=== PATIENT | female | born 1945 | race Caucasian/White ===

== ENCOUNTER 2018-07-27 20:00 | Observation (INO) ==
[2018-07-27] MEDS ORDERED: ASPIRIN 325 MG TABLET PO STA (20:15)
[2018-07-27] MEDS ORDERED: ENOXAPARIN 80 MG/0.8 ML SYRINGE SUBCUT STA (20:26)
[2018-07-27 20:35] LABS: Basophils % 0.2 % (0.0-0.8); Eosinophils # 0.1 10*3/uL (0.0-0.87); Eosinophils % 0.3 % (0.00-10.9); Hematocrit 42.8 VOL% (35.7-47.0); Hemoglobin 14.1 GM/DL (12.0-16.0); Immature Granulocytes % 0.3 %; Immature Granulocytes Absolute 0.05 #; Lymphocytes # 2.8 10*3/uL (1.4-4.0); Lymphocytes % 18.5 % (21.3-54.2); Mean Corpuscular HGB Conc 32.9 GM/DL (32-36); Mean Corpuscular Hemoglobin 27 PG (27-34); Mean Corpuscular Volume 81.1 FL (87-102); Mean Platelet Volume 10.8 FL (9.6-12.0); Monocytes # 1.4 10*3/uL (0.11-0.8); Monocytes % 8.9 % (1.7-12.7); Neutrophils # 10.9 10*3/uL (1.4-7.4); Neutrophils % 71.8 % (38.7-73.9); Platelet Count 317 T/CUMM (130-400); Red Blood Count 5.28 MC/CUMM (3.8-5.5); Red Cell Distribution Width 13.5 % (9.3-17.3); White Blood Count 15.2 T/CUMM (4-12)
[2018-07-27] MEDS ORDERED: PANTOPRAZOLE 40 MG VIAL IV STA (20:44)
[2018-07-27 20:50] LABS: INR 1.1; PT Patient Result 11.4 SECS; Partial Thromboplastin Time 24.1 SECS (0-40)
[2018-07-27 20:52] LABS: Albumin 4.5 G/DL (3.4-5.0); Bilirubin,Total 0.7 MG/DL (0.2-1.0); Calcium 9.6 MG/DL (8.5-10.1); Osmolality,Calculated 278.1 MOS/KG (273-304); Potassium 3.5 MMOL/L (3.5-5.1); Total Protein 7.4 G/DL (6.4-8.3)
[2018-07-27] MEDS ORDERED: METOPROLOL TARTRATE 5 MG/5 ML VIAL IV STA (21:00)
[2018-07-27] MEDS ORDERED: METOPROLOL TARTRATE 5 MG/5 ML VIAL IV ONE (21:00)
[2018-07-27] MEDS ORDERED: MAGNESIUM SULF RIDER 4 GM in PREMIX 1 EACH IV PRN (23:01)
[2018-07-27] MEDS ORDERED: MAGNESIUM SULF RIDER 2 GM in PREMIX 1 EACH IV PRN (23:01)
[2018-07-27] MEDS ORDERED: ONDANSETRON 4 MG/2 ML VIAL IV PRN (23:25)
[2018-07-27] MEDS ORDERED: PROMETHAZINE 25 MG/1 ML VIAL IM PRN (23:25)
[2018-07-27] MEDS ORDERED: guaiFENesin/DM ER 600-30 MG TABLET PO PRN (23:35)
[2018-07-27] MEDS ORDERED: ACETAMINOPHEN 325 MG TABLET PO PRN (23:35)
[2018-07-27] MEDS ORDERED: BISACODYL 5 MG TABLET PO PRN (23:35)
[2018-07-27] MEDS ORDERED: MORPHINE 4 MG/1 ML VIAL IV PRN (23:35)
[2018-07-27] MEDS ORDERED: DOCUSATE SODIUM 100 MG CAPSULE PO PRN (23:35)
[2018-07-27] MEDS ORDERED: diphenhydrAMINE CAP 25 MG CAPSULE PO PRN (23:35)
[2018-07-27] MEDS ORDERED: ZALEPLON 5 MG CAPSULE PO PRN (23:35)
[2018-07-28] MEDS: LACTULOSE 20 GM/30 ML UDCUP PO PRN ×2 (01:40→18:32)
[2018-07-28] MEDS: SODIUM CHLORIDE 0.9% 1,000 ML IV SCH ×3 (01:40→16:34)
[2018-07-28] MEDS: POTASSIUM CHLORIDE RIDER 10 MEQ in PREMIX 1 EACH IV PRN ×7 (01:40→15:20)
[2018-07-28 04:08] LABS: Basophils % 0.2 % (0.0-0.8); Eosinophils # 0.1 10*3/uL (0.0-0.87); Eosinophils % 0.5 % (0.00-10.9); Hematocrit 40.2 VOL% (35.7-47.0); Immature Granulocytes % 0.4 %; Immature Granulocytes Absolute 0.04 #; Lymphocytes # 1.7 10*3/uL (1.4-4.0); Mean Corpuscular HGB Conc 32.3 GM/DL (32-36); Mean Corpuscular Hemoglobin 26 PG (27-34); Mean Corpuscular Volume 80.4 FL (87-102); Monocytes # 0.7 10*3/uL (0.11-0.8); Neutrophils # 8.6 10*3/uL (1.4-7.4); Neutrophils % 77.9 % (38.7-73.9); Platelet Count 279 T/CUMM (130-400); Red Cell Distribution Width 13.5 % (9.3-17.3)
[2018-07-28 04:38] LABS: Calcium 9.5 MG/DL (8.5-10.1); Osmolality,Calculated 283.8 MOS/KG (273-304); Potassium 3.1 MMOL/L (3.5-5.1)
[2018-07-28] MEDS ORDERED: ASPIRIN EC 81 MG TABLET PO SCH (09:00)
[2018-07-28] MEDS ORDERED: PANTOPRAZOLE 40 MG VIAL IV SCH (09:00)
[2018-07-28] MEDS ORDERED: cloNIDine 0.1 MG TABLET PO SCH (09:00)
[2018-07-28] MEDS ORDERED: POLYETHYLENE GLYCOL POWDER 17 GM PACK PO SCH (09:00)
[2018-07-28] MEDS ORDERED: MAGNESIUM CITRATE 300 ML BOTTLE PO PRN (09:04)
[2018-07-28] MEDS ORDERED: GLUCAGON 1 MG VIAL IM PRN (09:06)
[2018-07-28] MEDS ORDERED: DEXTROSE 50% 25 GM/50 ML VIAL IV PRN (09:06)
[2018-07-28] MEDS ORDERED: DIAZEPAM 5 MG TABLET PO ONE (09:20)
[2018-07-28 09:35] LABS: Free T4 (Free Thyroxine) 1.3 NG/DL (0.76-1.46); Risk Ratio 1.82; Thyroid Stimulating Hormone 1.68 uIU/ml (0.358-3.74); VLDL CHOLESTEROL 15.2 MG/DL
[2018-07-28] MEDS ORDERED: diphenhydrAMINE 50 MG/1 ML VIAL IV ONE (10:30)
[2018-07-28] MEDS ORDERED: methylPREDNISolone SOD SUC 40 MG/1 ML VIAL IV ONE (10:30)
[2018-07-28] MEDS ORDERED: FAMOTIDINE 20 MG/2 ML VIAL IV ONE (10:30)
[2018-07-28] MEDS ORDERED: methylPREDNISolone SOD SUC 125 MG/2 ML VIAL IV ONE (11:00)
[2018-07-28] MEDS ORDERED: HEPARIN/NACL 0.9% 2 UNITS/ML 1,000 ML IV ONE (11:42)
[2018-07-28] MEDS ORDERED: LIDOCAINE 1% 20 ML VIAL ONE (11:42)
[2018-07-28] MEDS ORDERED: NITROGLYCERIN DRIP 50 MG/250 ML BOTTLE IV ONE (12:06)
[2018-07-28] MEDS ORDERED: VERAPAMIL 5 MG/2 ML VIAL ONE (12:06)
[2018-07-28] MEDS: INSULIN REGULAR 100 UNIT/ML SUBCUT SCH ×2 (12:09→15:38)
[2018-07-28] MEDS ORDERED: MIDAZOLAM 2 MG/2 ML VIAL ONE (12:12)
[2018-07-28] MEDS ORDERED: HYDROmorphone 2 MG/1 ML VIAL ONE (12:12)
[2018-07-28] MEDS ORDERED: ENOXAPARIN 30 MG/0.3 ML SYRINGE ONE (12:17)
[2018-07-28] MEDS ORDERED: SODIUM CHLORIDE 0.9% 1,000 ML IV SCH (12:30)
[2018-07-28] MEDS ORDERED: MAGNESIUM CITRATE 300 ML BOTTLE PO ONE (14:26)
[2018-07-28] MEDS ORDERED: SODIUM PHOSPHATE ENEMA 133 ML BOTTLE RECTAL ONE ×2 (17:10→17:41)
[2018-07-28 18:34] VITALS: BP 122/62
[2018-07-28] MEDS ORDERED: METOPROLOL SUCCINATE XL 100 MG TABLET PO SCH (19:00)
== END 2018-07-28 18:41 | disposition home or self-care (01) ==
LOC: N.EDINP 20:00 → N.ED 20:00 → N.TELEN 22:29
PROVIDERS: ADMIT Internal Medicine Cardiovascular Disease; ATTEND Internal Medicine Cardiovascular Disease
PROC: CLCCHCL (ICD-10-PCS; 2018-07-28 12:45)

== ENCOUNTER 2019-07-23 18:58 | Inpatient (IN) ==
[2019-07-23 19:35] LABS: Basophils # 0.1 10*3/uL (0.0-0.2); Basophils % 0.8 % (0.0-0.8); Eosinophils # 0.3 10*3/uL (0.0-0.87); Eosinophils % 1.9 % (0.00-10.9); Hematocrit 41.7 VOL% (35.7-47.0); Hemoglobin 13.6 GM/DL (12.0-16.0); Immature Granulocytes % 0.4 %; Immature Granulocytes Absolute 0.05 #; Lymphocytes # 3.1 10*3/uL (1.4-4.0); Lymphocytes % 22.2 % (21.3-54.2); Mean Corpuscular HGB Conc 32.6 GM/DL (32-36); Mean Corpuscular Volume 85.3 FL (87-102); Mean Platelet Volume 10.6 FL (9.6-12.0); Monocytes % 11.9 % (1.7-12.7); Neutrophils % 62.8 % (38.7-73.9); Platelet Count 236 T/CUMM (130-400); Red Blood Count 4.89 MC/CUMM (3.8-5.5); Red Cell Distribution Width 13.4 % (9.3-17.3); White Blood Count 14.1 T/CUMM (4-12)
[2019-07-23 20:02] LABS: PT Patient Result 10.6 SECS (9.6-12.2); Partial Thromboplastin Time < 21.0 SECS (20.8-36.0)
[2019-07-23 20:03] LABS: Alanine Aminotransferase 20 U/L (13-56); Albumin 3.9 G/DL (3.4-5.0); Alkaline Phosphatase 68 U/L (45-117); Aspartate Amino Transferase 25 U/L (0-37); Blood Urea Nitrogen 27 MG/DL (7-18); Calcium 9.1 MG/DL (8.5-10.1); Estimated Glom Filtration Rate 54 ML/MIN; Glucose 101 MG/DL (74-106); Osmolality,Calculated 270.4 MOS/KG (273-304); Total Protein 6.9 G/DL (6.4-8.3)
[2019-07-23 20:50] LABS: Apearance,Urine CLEAR (Clear); Bilirubin,Urine Negative (Negative); Blood, Urine Negative (Negative); Glucose,Urine (UA) Negative (Negative); Ketones,Urine Negative (Negative); Mucus,Urine Occasional /LPF (Occasional); Nitrite,Urine Negative (Negative); Protein,Urine 30 MG/DL; Squamous Epithelial Cell,Urine Occasional /HPF (0-10); Urine Color Yellow (Yellow); Urine Specific Gravity 1.014 (1.001-1.035); Urine Urobilinogen < 2.0 EU/DL (0.2-1.0)
[2019-07-23] MEDS ORDERED: LACTATED RINGERS 1,000 ML IV SCH (22:00)
[2019-07-23] MEDS ORDERED: LACTATED RINGERS 1,000 ML IV ONE (22:04)
[2019-07-23] MEDS ORDERED: BISACODYL 5 MG TABLET PO PRN (23:19)
[2019-07-23] MEDS ORDERED: ONDANSETRON 4 MG/2 ML VIAL IV PRN (23:19)
[2019-07-23] MEDS ORDERED: NICOTINE 21 MG/24 HR PATCH TRANSDERM PRN (23:19)
[2019-07-23] MEDS ORDERED: diphenhydrAMINE CAP 25 MG CAPSULE PO PRN (23:19)
[2019-07-23] MEDS ORDERED: ACETAMINOPHEN 325 MG TABLET PO PRN (23:19)
[2019-07-23] MEDS ORDERED: traZODone 50 MG TABLET PO PRN (23:19)
[2019-07-23 23:48] LABS: Thyroid Stimulating Hormone 1.47 uIU/ml (0.358-3.74)
[2019-07-24] MEDS ORDERED: DOCUSATE SODIUM 100 MG CAPSULE PO PRN (00:21)
[2019-07-24] MEDS: SODIUM CHLORIDE 0.9% 1,000 ML IV SCH ×3 (00:28→16:00)
[2019-07-24 03:07] LABS: ABG Base Excess 0.7 MMOL/L (-2.5-2.5); ABG HCO3 26.3 MMOL/L (20-26); ABG Oxygen Saturation 96.8 % (95-100); ABG PCO2 45.8 MM HG (35-48); ABG PH 7.377 (7.35-7.45); ABG PO2 97.1 MM HG (80-95); ABG TCO2 27.7 MMOL/L (23-27); Allen Test Positive
[2019-07-24 04:52] LABS: Basophils # 0.1 10*3/uL (0.0-0.2); Basophils % 0.7 % (0.0-0.8); Eosinophils # 0.4 10*3/uL (0.0-0.87); Hematocrit 38.4 VOL% (35.7-47.0); Hemoglobin 12.5 GM/DL (12.0-16.0); Immature Granulocytes % 0.5 %; Immature Granulocytes Absolute 0.06 #; Mean Corpuscular HGB Conc 32.6 GM/DL (32-36); Mean Corpuscular Volume 85.5 FL (87-102); Mean Platelet Volume 10.6 FL (9.6-12.0); Monocytes % 12.1 % (1.7-12.7); Neutrophils % 57.7 % (38.7-73.9); Platelet Count 196 T/CUMM (130-400); Red Blood Count 4.49 MC/CUMM (3.8-5.5); Red Cell Distribution Width 13.3 % (9.3-17.3); White Blood Count 11.5 T/CUMM (4-12)
[2019-07-24 05:24] LABS: Albumin 3.2 G/DL (3.4-5.0); Bilirubin,Total 0.9 MG/DL (0.2-1.0); Calcium 8.9 MG/DL (8.5-10.1); Osmolality,Calculated 272.1 MOS/KG (273-304); Total Protein 6.1 G/DL (6.4-8.3)
[2019-07-24] MEDS: AMOXICILLIN/CLAV 875 MG TABLET PO SCH ×2 (08:21→16:00)
[2019-07-24] MEDS: ASPIRIN EC 81 MG TABLET PO SCH (08:21)
[2019-07-24] MEDS: MAGNESIUM CHLORIDE 64 MG TABLET PO SCH (08:21)
[2019-07-24] MEDS: CHOLECALCIFEROL 1,000 UNIT TABLET PO SCH (08:21)
[2019-07-24] MEDS: carvediloL 25 MG TABLET PO SCH ×2 (08:21→16:00)
[2019-07-24] MEDS: SPIRONOLACTONE 50 MG TABLET PO SCH ×2 (08:22→20:43)
[2019-07-24] MEDS: THYROID 60 MG TABLET PO SCH (08:25)
[2019-07-24] MEDS: BENZONATATE 100 MG CAPSULE PO PRN (09:27)
[2019-07-24] MEDS: ROSUVASTATIN 10 MG TABLET PO SCH (20:44)
[2019-07-25] MEDS: SODIUM CHLORIDE 0.9% 1,000 ML IV SCH ×5 (00:40→21:16)
[2019-07-25 04:53] LABS: Basophils # 0.1 10*3/uL (0.0-0.2); Basophils % 0.7 % (0.0-0.8); Eosinophils # 0.6 10*3/uL (0.0-0.87); Hematocrit 36.4 VOL% (35.7-47.0); Immature Granulocytes % 0.3 %; Immature Granulocytes Absolute 0.03 #; Lymphocytes # 1.4 10*3/uL (1.4-4.0); Lymphocytes % 13.9 % (21.3-54.2); Mean Corpuscular Volume 84.5 FL (87-102); Mean Platelet Volume 10.8 FL (9.6-12.0); Monocytes % 9.8 % (1.7-12.7); Neutrophils % 69.3 % (38.7-73.9); Platelet Count 173 T/CUMM (130-400); Red Blood Count 4.31 MC/CUMM (3.8-5.5); Red Cell Distribution Width 12.9 % (9.3-17.3); White Blood Count 9.7 T/CUMM (4-12)
[2019-07-25 05:13] LABS: Calcium 8.6 MG/DL (8.5-10.1)
[2019-07-25] MEDS: THYROID 60 MG TABLET PO SCH (08:28)
[2019-07-25] MEDS: CHOLECALCIFEROL 1,000 UNIT TABLET PO SCH (08:29)
[2019-07-25] MEDS: SPIRONOLACTONE 50 MG TABLET PO SCH ×2 (08:29→21:16)
[2019-07-25] MEDS: MAGNESIUM CHLORIDE 64 MG TABLET PO SCH (08:29)
[2019-07-25] MEDS: ASPIRIN EC 81 MG TABLET PO SCH (08:29)
[2019-07-25] MEDS: BENZONATATE 100 MG CAPSULE PO PRN (08:29)
[2019-07-25] MEDS: carvediloL 25 MG TABLET PO SCH ×2 (08:30→16:02)
[2019-07-25] MEDS: AMOXICILLIN/CLAV 875 MG TABLET PO SCH (08:40)
[2019-07-25] MEDS ORDERED: methylPREDNISolone SOD SUC 40 MG/1 ML VIAL IV SCH (09:00)
[2019-07-25] MEDS: cefTRIAXone 1,000 MG in SYRINGE 1 EACH IV SCH (10:09)
[2019-07-25] MEDS: AZITHROMYCIN INJ 500 MG in SODIUM CHLORIDE 0.9% 250 ML IV SCH (10:10)
[2019-07-25] MEDS ORDERED: DEXTROSE 50% 25 GM/50 ML VIAL IV PRN (12:41)
[2019-07-25] MEDS ORDERED: GLUCAGON 1 MG VIAL IM PRN (12:41)
[2019-07-25 15:31] LABS: Apearance,Urine CLEAR (Clear); Bacteria,Urine Occasional /HPF (Few); Bilirubin,Urine Negative (Negative); Blood, Urine Negative (Negative); Glucose,Urine (UA) Negative (Negative); Ketones,Urine 20 mg/dL (Negative); Mucus,Urine Occasional /LPF (Occasional); Nitrite,Urine Negative (Negative); Protein,Urine Negative; RBC,Urine <1 /HPF (0-4); Squamous Epithelial Cell,Urine Occasional /HPF (0-10); Urine Color Straw (Yellow); Urine Specific Gravity 1.009 (1.001-1.035); Urine Urobilinogen < 2.0 EU/DL (0.2-1.0)
[2019-07-25] MEDS: INSULIN REGULAR 100 UNIT/ML SUBCUT SCH ×2 (16:02→21:15)
[2019-07-25] MEDS: methylPREDNISolone SOD SUC 40 MG/1 ML VIAL IV SCH (16:05)
[2019-07-25] MEDS: ROSUVASTATIN 10 MG TABLET PO SCH (21:16)
[2019-07-26] MEDS: methylPREDNISolone SOD SUC 40 MG/1 ML VIAL IV SCH ×3 (02:16→16:46)
[2019-07-26] MEDS: SODIUM CHLORIDE 0.9% 1,000 ML IV SCH ×3 (05:50→21:11)
[2019-07-26 06:51] LABS: Basophils % 0.1 % (0.0-0.8); Hematocrit 39.2 VOL% (35.7-47.0); Hemoglobin 13.1 GM/DL (12.0-16.0); Immature Granulocytes % 0.5 %; Immature Granulocytes Absolute 0.06 #; Lymphocytes # 1.3 10*3/uL (1.4-4.0); Lymphocytes % 10.7 % (21.3-54.2); Mean Corpuscular HGB Conc 33.4 GM/DL (32-36); Mean Corpuscular Volume 83.6 FL (87-102); Monocytes % 2.2 % (1.7-12.7); Neutrophils % 86.5 % (38.7-73.9); Platelet Count 196 T/CUMM (130-400); Red Blood Count 4.69 MC/CUMM (3.8-5.5); Red Cell Distribution Width 13.1 % (9.3-17.3)
[2019-07-26 07:05] LABS: Calcium 9.2 MG/DL (8.5-10.1); Osmolality,Calculated 283.4 MOS/KG (273-304)
[2019-07-26] MEDS: INSULIN REGULAR 100 UNIT/ML SUBCUT SCH ×4 (09:03→21:09)
[2019-07-26] MEDS: MAGNESIUM CHLORIDE 64 MG TABLET PO SCH (11:21)
[2019-07-26] MEDS: SPIRONOLACTONE 50 MG TABLET PO SCH ×2 (11:22→21:09)
[2019-07-26] MEDS: ASPIRIN EC 81 MG TABLET PO SCH (11:22)
[2019-07-26] MEDS: CHOLECALCIFEROL 1,000 UNIT TABLET PO SCH (11:22)
[2019-07-26] MEDS: carvediloL 25 MG TABLET PO SCH ×2 (11:22→16:47)
[2019-07-26] MEDS: cefTRIAXone 1,000 MG in SYRINGE 1 EACH IV SCH (11:23)
[2019-07-26] MEDS: AZITHROMYCIN INJ 500 MG in SODIUM CHLORIDE 0.9% 250 ML IV SCH (11:24)
[2019-07-26] MEDS: THYROID 60 MG TABLET PO SCH (11:26)
[2019-07-26] MEDS: ROSUVASTATIN 10 MG TABLET PO SCH (21:08)
[2019-07-27] MEDS: methylPREDNISolone SOD SUC 40 MG/1 ML VIAL IV SCH ×3 (02:28→22:32)
[2019-07-27] MEDS: SODIUM CHLORIDE 0.9% 1,000 ML IV SCH ×2 (05:03→17:00)
[2019-07-27] MEDS: INSULIN REGULAR 100 UNIT/ML SUBCUT SCH ×3 (08:36→17:01)
[2019-07-27] MEDS: SPIRONOLACTONE 50 MG TABLET PO SCH ×2 (09:42→22:33)
[2019-07-27] MEDS: ASPIRIN EC 81 MG TABLET PO SCH (09:43)
[2019-07-27] MEDS: carvediloL 25 MG TABLET PO SCH ×2 (09:43→17:02)
[2019-07-27] MEDS: MAGNESIUM CHLORIDE 64 MG TABLET PO SCH (09:43)
[2019-07-27] MEDS: CHOLECALCIFEROL 1,000 UNIT TABLET PO SCH (09:43)
[2019-07-27] MEDS: THYROID 60 MG TABLET PO SCH (10:30)
[2019-07-27] MEDS: cefTRIAXone 1,000 MG in SYRINGE 1 EACH IV SCH (10:33)
[2019-07-27] MEDS: AZITHROMYCIN INJ 500 MG in SODIUM CHLORIDE 0.9% 250 ML IV SCH (10:42)
[2019-07-27] MEDS: ROSUVASTATIN 10 MG TABLET PO SCH (22:32)
[2019-07-28] MEDS: INSULIN REGULAR 100 UNIT/ML SUBCUT SCH ×4 (01:15→18:33)
[2019-07-28] MEDS: ALBUTEROL/IPRATROPIUM 3 ML NEB RESP TX SCH ×2 (09:15→13:27)
[2019-07-28] MEDS: methylPREDNISolone SOD SUC 40 MG/1 ML VIAL IV SCH (09:50)
[2019-07-28] MEDS: THYROID 60 MG TABLET PO SCH (09:51)
[2019-07-28] MEDS: SPIRONOLACTONE 50 MG TABLET PO SCH (09:52)
[2019-07-28] MEDS: MAGNESIUM CHLORIDE 64 MG TABLET PO SCH (09:52)
[2019-07-28] MEDS: CHOLECALCIFEROL 1,000 UNIT TABLET PO SCH (09:52)
[2019-07-28] MEDS: ASPIRIN EC 81 MG TABLET PO SCH (09:52)
[2019-07-28] MEDS: carvediloL 25 MG TABLET PO SCH ×2 (09:52→18:33)
[2019-07-28 15:55] VITALS: BP 152/62
[2019-08-11 11:01] LABS: ACh Receptor (Muscle) Modulati 0 %; Striational (Striated Muscle) Negative titer (<1:120)
== END 2019-07-28 17:59 | disposition home or self-care (01) | DRG 948 ==
LOC: N.ED 18:58 → N.EDINP 18:58 → SUPCPDRO 23:19 → SUATTDRO 23:19 → N.2E 23:42
PROVIDERS: ADMIT Emergency Medicine; ATTEND Internal Medicine

== ENCOUNTER 2022-10-22 14:44 | Observation (INO) ==
[2022-10-22] MEDS ORDERED: DIPH/TET/ACEL PERT BOOSTER VACCINE 0.5 ML VIAL IM ONE (15:34)
[2022-10-22 16:50] LABS: Basophils % 0.4 % (0.0-0.8); Eosinophils % 0.8 % (0.00-10.9); Hematocrit 34.6 VOL% (35.7-47.0); Hemoglobin 10.9 GM/DL (12.0-16.0); Immature Granulocytes % 0.4 %; Immature Granulocytes Absolute 0.02 #; Lymphocytes # 0.4 10*3/uL (1.4-4.0); Lymphocytes % 7.7 % (21.3-54.2); Mean Corpuscular HGB Conc 31.5 GM/DL (32-36); Mean Corpuscular Volume 86.3 FL (87-102); Mean Platelet Volume 11.4 FL (9.6-12.0); Monocytes # 0.6 10*3/uL (0.11-0.8); Monocytes % 11.6 % (1.7-12.7); Neutrophils % 79.1 % (38.7-73.9); Platelet Count 100 T/CUMM (130-400); Red Blood Count 4.01 MC/CUMM (3.8-5.5); Red Cell Distribution Width 14.1 % (9.3-17.3); White Blood Count 5.17 T/CUMM (4-12)
[2022-10-22 17:18] LABS: Bacteria,Urine Occasional /HPF (Few); Mucus,Urine Many /LPF (Occasional); Squamous Epithelial Cell,Urine Occasional /HPF (0-10)
[2022-10-22 17:19] LABS: Urine Appearance Clear (Clear); Urine Color Yellow (Yellow); Urine pH 5.5 (4.5-8.0)
[2022-10-22 17:20] LABS: Bilirubin,Urine Negative (Negative); Blood, Urine Small mg/dL (Negative); Glucose,Urine (UA) Negative (Negative); Ketones,Urine Negative (Negative); Nitrite,Urine Negative (Negative); Protein,Urine >=300 mg/dL (Negative); Urine Specific Gravity >= 1.030 (1.001-1.035); Urine Urobilinogen < 2.0 eU/dL (<2.0)
[2022-10-22 17:25] LABS: Albumin 3.1 G/DL (3.4-5.0); Bilirubin,Total 0.5 MG/DL (0.20-1.00); Calcium 8.7 MG/DL (8.5-10.1); Osmolality,Calculated 280.7 MOS/KG (273-304); Potassium 4.1 MMOL/L (3.5-5.1); Total Protein 6.2 G/DL (6.4-8.2)
[2022-10-22] MEDS ORDERED: SODIUM CHLORIDE 0.9% 1,000 ML IV STA (17:40)
[2022-10-22] MEDS ORDERED: ONDANSETRON 4 MG/2 ML VIAL IV PRN (17:57)
[2022-10-22] MEDS ORDERED: DEXTROSE 10% 250 ML BAG IV PRN (17:57)
[2022-10-22] MEDS ORDERED: GLUCAGON 1 MG VIAL IM PRN (17:57)
[2022-10-22] MEDS: SODIUM CHLORIDE 0.9% 1,000 ML IV SCH ×2 (20:30→22:35)
[2022-10-22] MEDS: AMOXICILLIN/CLAV 875 MG TABLET PO SCH (22:34)
[2022-10-23] MEDS ORDERED: hydrALAZINE 20 MG/1 ML VIAL IV PRN (04:37)
[2022-10-23] MEDS ORDERED: ACETAMINOPHEN 325 MG TABLET PO PRN (04:51)
[2022-10-23 05:18] LABS: Basophils % 0.5 % (0.0-0.8); Hematocrit 32.6 VOL% (35.7-47.0); Hemoglobin 10.2 GM/DL (12.0-16.0); Immature Granulocytes % 0.2 %; Immature Granulocytes Absolute 0.01 #; Mean Corpuscular HGB Conc 31.3 GM/DL (32-36); Mean Corpuscular Volume 88.1 FL (87-102); Mean Platelet Volume 11.6 FL (9.6-12.0); Monocytes # 0.8 10*3/uL (0.11-0.8); Monocytes % 17.9 % (1.7-12.7); Neutrophils % 59.4 % (38.7-73.9); Platelet Count 96 T/CUMM (130-400); Red Cell Distribution Width 14.4 % (9.3-17.3); White Blood Count 4.36 T/CUMM (4-12)
[2022-10-23 05:52] LABS: Lymphocytes 14 % (20-55); Microcytosis 1+; Stomatocytes Slight; Total Cells Counted 100
[2022-10-23 05:53] LABS: Albumin 2.9 G/DL (3.4-5.0); Bilirubin,Total 0.5 MG/DL (0.20-1.00); Calcium 8.3 MG/DL (8.5-10.1); Osmolality,Calculated 283.4 MOS/KG (273-304); Ovalocytes Slight; Platelet Estimate Decreased; Total Protein 5.8 G/DL (6.4-8.2)
[2022-10-23] MEDS: SODIUM CHLORIDE 0.9% 1,000 ML IV SCH ×3 (06:43→22:04)
[2022-10-23] MEDS: AMOXICILLIN/CLAV 875 MG TABLET PO SCH ×2 (09:23→22:04)
[2022-10-23 12:39] LABS: Arterial Base Excess iSTAT 1 MMOL/L (-2.5-2.5); Arterial Bicarbonate iSTAT 28.3 MMOL/L (20-26); Arterial O2 Saturation iSTAT 95 % (95-100); Arterial PCO2 iSTAT 55 MM HG (35-48); Arterial PO2 iSTAT 85 MM HG (80-95); Arterial Total CO2 iSTAT 30 MMO/L (23-27); Arterial pH iSTAT 7.323 (7.35-7.45)
[2022-10-24] MEDS: AMOXICILLIN/CLAV 875 MG TABLET PO SCH (09:04)
[2022-10-24] MEDS: SODIUM CHLORIDE 0.9% 1,000 ML IV SCH ×2 (09:04→12:59)
[2022-10-24 14:13] VITALS: BP 181/67
== END 2022-10-24 14:42 ==
LOC: N.ED 14:44 → N.EDINP 14:44 → N.2W 19:04
PROVIDERS: ADMIT Internal Medicine; ATTEND Internal Medicine

== ENCOUNTER 2022-10-24 22:16 | Inpatient (IN) ==
[2022-10-24 23:09] LABS: ABG Base Excess 2.4 MMOL/L (-2.5-2.5); ABG HCO3 26.5 MMOL/L (20-26); ABG Oxygen Saturation 96.9 % (95-100); ABG PCO2 64.3 MM HG (35-48); ABG PH 7.288 (7.35-7.45); ABG PO2 93.2 MM HG (80-95); ABG TCO2 27.9 MMOL/L (23-27)
[2022-10-24 23:20] LABS: Basophils % 0.2 % (0.0-0.8); Hematocrit 36.9 VOL% (35.7-47.0); Hemoglobin 11.4 GM/DL (12.0-16.0); Mean Corpuscular HGB Conc 30.9 GM/DL (32-36); Mean Corpuscular Volume 89.8 FL (87-102); Mean Platelet Volume 11.7 FL (9.6-12.0); Monocytes # 0.1 10*3/uL (0.11-0.8); Monocytes % 1.2 % (1.7-12.7); Neutrophils % 75.6 % (38.7-73.9); Platelet Count 102 T/CUMM (130-400); Red Blood Count 4.11 MC/CUMM (3.8-5.5); Red Cell Distribution Width 13.4 % (9.3-17.3); White Blood Count 4.27 T/CUMM (4-12)
[2022-10-24 23:37] LABS: Albumin 2.8 G/DL (3.4-5.0); Bilirubin,Total 0.4 MG/DL (0.20-1.00); Calcium 8.7 MG/DL (8.5-10.1); Osmolality,Calculated 278.8 MOS/KG (273-304); Potassium 4.2 MMOL/L (3.5-5.1)
[2022-10-25] MEDS ORDERED: ENOXAPARIN 30 MG/0.3 ML SYRINGE SUBCUT STA (00:38)
[2022-10-25] MEDS ORDERED: ENOXAPARIN 80 MG/0.8 ML SYRINGE SUBCUT STA (00:42)
[2022-10-25] MEDS ORDERED: FUROSEMIDE 40 MG/4 ML VIAL IV ONE (01:57)
[2022-10-25] MEDS ORDERED: ONDANSETRON 4 MG/2 ML VIAL IV PRN (01:57)
[2022-10-25] MEDS ORDERED: ACETAMINOPHEN 325 MG TABLET PO PRN (01:57)
[2022-10-25] MEDS ORDERED: MORPHINE 2 MG/1 ML SYRINGE IV PRN (01:57)
[2022-10-25] MEDS ORDERED: hydrALAZINE 20 MG/1 ML VIAL IV PRN (01:57)
[2022-10-25] MEDS: INSULIN LISPRO 100 UNIT/ML SUBCUT SCH ×4 (02:40→20:30)
[2022-10-25] MEDS ORDERED: ASPIRIN 300 MG SUPP RECTAL STA (02:41)
[2022-10-25 02:55] LABS: Bacteria,Urine Occasional /HPF (Few); Bilirubin,Urine Negative (Negative); Blood, Urine Trace mg/dL (Negative); Glucose,Urine (UA) Negative (Negative); Ketones,Urine Negative (Negative); Mucus,Urine Occasional /LPF (Occasional); Nitrite,Urine Negative (Negative); Protein,Urine 100 mg/dL (Negative); RBC,Urine <1 /HPF (0-4); Urine Appearance Clear (Clear); Urine Color Yellow (Yellow); Urine Specific Gravity 1.025 (1.001-1.035); Urine Urobilinogen 0.2 eU/dL (<2.0); Urine pH 5.5 (4.5-8.0)
[2022-10-25] MEDS: methylPREDNISolone SOD SUC 125 MG/2 ML VIAL IV SCH ×3 (02:57→21:52)
[2022-10-25] MEDS: cefTRIAXone 1,000 MG in SODIUM CHLORIDE 0.9% 100 ML IV SCH (03:00)
[2022-10-25] MEDS ORDERED: MELATONIN 3 MG TABLET PO PRN (03:57)
[2022-10-25] MEDS: AZITHROMYCIN INJ 500 MG in SODIUM CHLORIDE 0.9% 250 ML IV SCH (04:21)
[2022-10-25 04:39] LABS: ABG Base Excess 1.2 MMOL/L (-2.5-2.5); ABG HCO3 25.4 MMOL/L (20-26); ABG Oxygen Saturation 94.5 % (95-100); ABG PCO2 58.8 MM HG (35-48); ABG PH 7.302 (7.35-7.45); ABG PO2 77.6 MM HG (80-95); ABG TCO2 26.1 MMOL/L (23-27)
[2022-10-25 04:55] LABS: Basophils % 0.3 % (0.0-0.8); Hematocrit 37.2 VOL% (35.7-47.0); Hemoglobin 11.7 GM/DL (12.0-16.0); Immature Granulocytes % 0.5 %; Immature Granulocytes Absolute 0.02 #; Lymphocytes # 1.1 10*3/uL (1.4-4.0); Lymphocytes % 28.1 % (21.3-54.2); Mean Corpuscular HGB Conc 31.5 GM/DL (32-36); Mean Corpuscular Volume 87.9 FL (87-102); Mean Platelet Volume 11.9 FL (9.6-12.0); Monocytes # 0.1 10*3/uL (0.11-0.8); Monocytes % 1.9 % (1.7-12.7); Neutrophils % 69.2 % (38.7-73.9); Platelet Count 104 T/CUMM (130-400); Red Blood Count 4.23 MC/CUMM (3.8-5.5); Red Cell Distribution Width 13.4 % (9.3-17.3); White Blood Count 3.77 T/CUMM (4-12)
[2022-10-25 05:11] LABS: Osmolality,Calculated 286.5 MOS/KG (273-304); Potassium 4.2 MMOL/L (3.5-5.1)
[2022-10-25] MEDS: ALBUTEROL/IPRATROPIUM 3 ML NEB RESP TX SCH ×3 (07:16→19:48)
[2022-10-25] MEDS: FAMOTIDINE 20 MG TABLET PO SCH ×2 (09:16→21:51)
[2022-10-25] MEDS: PANTOPRAZOLE 40 MG TABLET PO SCH (09:16)
[2022-10-25] MEDS: CETIRIZINE 10 MG TABLET PO SCH (09:16)
[2022-10-25] MEDS: ZINC GLUCONATE 50 MG TABLET PO SCH (09:16)
[2022-10-25] MEDS: ASCORBIC ACID 500 MG TABLET PO SCH ×2 (09:16→21:51)
[2022-10-25 09:21] LABS: Hematocrit 35.2 VOL% (35.7-47.0); Hemoglobin 11.6 GM/DL (12.0-16.0); Immature Granulocytes % 0.3 %; Immature Granulocytes Absolute 0.01 #; Mean Corpuscular Volume 85.9 FL (87-102); Mean Platelet Volume 11.7 FL (9.6-12.0); Monocytes # 0.1 10*3/uL (0.11-0.8); Neutrophils % 65.7 % (38.7-73.9); Platelet Count 101 T/CUMM (130-400); Red Cell Distribution Width 13.2 % (9.3-17.3); White Blood Count 3.36 T/CUMM (4-12)
[2022-10-25 09:42] LABS: % Iron Saturation 9.6 % (18-50)
[2022-10-25 09:49] LABS: Alanine Aminotransferase 17 U/L (13-56); Albumin 2.8 G/DL (3.4-5.0); Alkaline Phosphatase 44 U/L (45-117); Aspartate Amino Transferase 29 U/L (0-37); Bilirubin,Direct < 0.100 MG/DL (0.0-0.20); Bilirubin,Indirect 0.3 MG/DL (0.0-1.0); Bilirubin,Total < 0.39 MG/DL (0.20-1.00); Total Protein 5.8 G/DL (6.4-8.2)
[2022-10-25 09:52] LABS: Folate 17.77 NG/ML (5.38-24.0); Vitamin B12 387 PG/ML (211-911)
[2022-10-25 10:24] LABS: Sedimentation Rate-Westergren 32 MM/HR (0-30)
[2022-10-25] MEDS ORDERED: REMDESIVIR 200 MG in SODIUM CHLORIDE 0.9% 210 ML IV ONE (11:00)
[2022-10-25] MEDS ORDERED: carvediloL 12.5 MG TABLET PO SCH (21:00)
[2022-10-25] MEDS: SPIRONOLACTONE 50 MG TABLET PO SCH (21:51)
[2022-10-25] MEDS: carvediloL 6.25 MG TABLET PO SCH (21:56)
[2022-10-26] MEDS: ALBUTEROL/IPRATROPIUM 3 ML NEB RESP TX SCH ×4 (01:16→19:25)
[2022-10-26] MEDS: cefTRIAXone 1,000 MG in SODIUM CHLORIDE 0.9% 100 ML IV SCH (02:26)
[2022-10-26] MEDS: methylPREDNISolone SOD SUC 125 MG/2 ML VIAL IV SCH ×3 (03:16→19:43)
[2022-10-26] MEDS: AZITHROMYCIN INJ 500 MG in SODIUM CHLORIDE 0.9% 250 ML IV SCH (03:16)
[2022-10-26 04:58] LABS: Ferritin 98.9 ng/mL (8-252)
[2022-10-26] MEDS: INSULIN LISPRO 100 UNIT/ML SUBCUT SCH ×4 (05:10→22:37)
[2022-10-26] MEDS: ROSUVASTATIN 10 MG TABLET PO SCH (09:19)
[2022-10-26] MEDS: ASPIRIN EC 81 MG TABLET PO SCH (09:19)
[2022-10-26] MEDS: FAMOTIDINE 20 MG TABLET PO SCH ×2 (09:19→22:37)
[2022-10-26] MEDS: CETIRIZINE 10 MG TABLET PO SCH (09:19)
[2022-10-26] MEDS: carvediloL 6.25 MG TABLET PO SCH ×2 (09:19→22:37)
[2022-10-26] MEDS: ZINC GLUCONATE 50 MG TABLET PO SCH (09:19)
[2022-10-26] MEDS: PANTOPRAZOLE 40 MG TABLET PO SCH (09:20)
[2022-10-26] MEDS: ASCORBIC ACID 500 MG TABLET PO SCH ×2 (09:20→22:36)
[2022-10-26] MEDS: SPIRONOLACTONE 50 MG TABLET PO SCH ×2 (09:20→22:37)
[2022-10-26] MEDS: FUROSEMIDE 20 MG TABLET PO SCH (09:30)
[2022-10-26] MEDS: REMDESIVIR 100 MG in SODIUM CHLORIDE 0.9% 100 ML IV SCH (09:30)
[2022-10-27] MEDS: ALBUTEROL/IPRATROPIUM 3 ML NEB RESP TX SCH ×4 (01:30→19:16)
[2022-10-27] MEDS: cefTRIAXone 1,000 MG in SODIUM CHLORIDE 0.9% 100 ML IV SCH (02:18)
[2022-10-27] MEDS: AZITHROMYCIN INJ 500 MG in SODIUM CHLORIDE 0.9% 250 ML IV SCH (03:08)
[2022-10-27] MEDS: methylPREDNISolone SOD SUC 125 MG/2 ML VIAL IV SCH ×2 (04:28→16:05)
[2022-10-27 04:47] LABS: Basophils % 0.1 % (0.0-0.8); Hematocrit 34.7 VOL% (35.7-47.0); Hemoglobin 11.4 GM/DL (12.0-16.0); Immature Granulocytes % 0.3 %; Immature Granulocytes Absolute 0.02 #; Lymphocytes # 0.6 10*3/uL (1.4-4.0); Lymphocytes % 8.4 % (21.3-54.2); Mean Corpuscular HGB Conc 32.9 GM/DL (32-36); Mean Platelet Volume 12.1 FL (9.6-12.0); Monocytes # 0.3 10*3/uL (0.11-0.8); Monocytes % 3.5 % (1.7-12.7); Neutrophils % 87.7 % (38.7-73.9); Platelet Count 120 T/CUMM (130-400); Red Blood Count 4.18 MC/CUMM (3.8-5.5); Red Cell Distribution Width 13.4 % (9.3-17.3); White Blood Count 7.06 T/CUMM (4-12)
[2022-10-27 05:08] LABS: Osmolality,Calculated 295.3 MOS/KG (273-304); Potassium 3.5 MMOL/L (3.5-5.1)
[2022-10-27 05:13] LABS: Ferritin 81.4 ng/mL (8-252)
[2022-10-27] MEDS: INSULIN LISPRO 100 UNIT/ML SUBCUT SCH ×4 (05:34→23:09)
[2022-10-27] MEDS: CETIRIZINE 10 MG TABLET PO SCH (09:27)
[2022-10-27] MEDS: FAMOTIDINE 20 MG TABLET PO SCH ×2 (09:28→23:07)
[2022-10-27] MEDS: ASPIRIN EC 81 MG TABLET PO SCH (09:28)
[2022-10-27] MEDS: FUROSEMIDE 20 MG TABLET PO SCH (09:28)
[2022-10-27] MEDS: SPIRONOLACTONE 50 MG TABLET PO SCH ×2 (09:28→23:08)
[2022-10-27] MEDS: ASCORBIC ACID 500 MG TABLET PO SCH ×2 (09:28→23:08)
[2022-10-27] MEDS: carvediloL 6.25 MG TABLET PO SCH ×2 (09:28→23:08)
[2022-10-27] MEDS: PANTOPRAZOLE 40 MG TABLET PO SCH (09:28)
[2022-10-27] MEDS: ZINC GLUCONATE 50 MG TABLET PO SCH (09:28)
[2022-10-27] MEDS: ROSUVASTATIN 10 MG TABLET PO SCH (09:29)
[2022-10-27] MEDS: REMDESIVIR 100 MG in SODIUM CHLORIDE 0.9% 100 ML IV SCH (09:36)
[2022-10-28] MEDS: ALBUTEROL/IPRATROPIUM 3 ML NEB RESP TX SCH ×4 (01:10→19:24)
[2022-10-28] MEDS: cefTRIAXone 1,000 MG in SODIUM CHLORIDE 0.9% 100 ML IV SCH (02:19)
[2022-10-28] MEDS: AZITHROMYCIN INJ 500 MG in SODIUM CHLORIDE 0.9% 250 ML IV SCH (03:19)
[2022-10-28] MEDS: methylPREDNISolone SOD SUC 125 MG/2 ML VIAL IV SCH (04:50)
[2022-10-28 05:59] LABS: Hematocrit 37.5 VOL% (35.7-47.0); Hemoglobin 12.6 GM/DL (12.0-16.0); Immature Granulocytes % 0.3 %; Immature Granulocytes Absolute 0.02 #; Lymphocytes # 0.6 10*3/uL (1.4-4.0); Lymphocytes % 8.3 % (21.3-54.2); Mean Corpuscular HGB Conc 33.6 GM/DL (32-36); Mean Corpuscular Volume 83.1 FL (87-102); Mean Platelet Volume 12.3 FL (9.6-12.0); Monocytes # 0.4 10*3/uL (0.11-0.8); Monocytes % 5.4 % (1.7-12.7); Platelet Count 131 T/CUMM (130-400); Red Blood Count 4.51 MC/CUMM (3.8-5.5); Red Cell Distribution Width 13.2 % (9.3-17.3); White Blood Count 7.74 T/CUMM (4-12)
[2022-10-28 06:21] LABS: Calcium 8.4 MG/DL (8.5-10.1); Osmolality,Calculated 290.4 MOS/KG (273-304); Potassium 3.3 MMOL/L (3.5-5.1)
[2022-10-28 06:39] LABS: Ferritin 87.3 ng/mL (8-252)
[2022-10-28] MEDS: CETIRIZINE 10 MG TABLET PO SCH (08:10)
[2022-10-28] MEDS: FAMOTIDINE 20 MG TABLET PO SCH ×2 (08:10→21:44)
[2022-10-28] MEDS: FUROSEMIDE 20 MG TABLET PO SCH (08:10)
[2022-10-28] MEDS: ASPIRIN EC 81 MG TABLET PO SCH (08:10)
[2022-10-28] MEDS: ASCORBIC ACID 500 MG TABLET PO SCH ×2 (08:10→21:44)
[2022-10-28] MEDS: PANTOPRAZOLE 40 MG TABLET PO SCH (08:10)
[2022-10-28] MEDS: ROSUVASTATIN 10 MG TABLET PO SCH (08:10)
[2022-10-28] MEDS ORDERED: POTASSIUM CHLORIDE 20 MEQ TABLET PO ONE (08:14)
[2022-10-28] MEDS: ZINC GLUCONATE 50 MG TABLET PO SCH (08:17)
[2022-10-28] MEDS: carvediloL 6.25 MG TABLET PO SCH ×2 (08:17→21:47)
[2022-10-28] MEDS: SPIRONOLACTONE 50 MG TABLET PO SCH ×2 (08:17→21:47)
[2022-10-28] MEDS: INSULIN LISPRO 100 UNIT/ML SUBCUT SCH ×4 (08:18→21:45)
[2022-10-28] MEDS: REMDESIVIR 100 MG in SODIUM CHLORIDE 0.9% 100 ML IV SCH (09:35)
[2022-10-28] MEDS: methylPREDNISolone SOD SUC 40 MG/1 ML VIAL IV SCH ×2 (09:35→21:44)
[2022-10-29] MEDS: ALBUTEROL/IPRATROPIUM 3 ML NEB RESP TX SCH ×2 (00:03→06:57)
[2022-10-29] MEDS: cefTRIAXone 1,000 MG in SODIUM CHLORIDE 0.9% 100 ML IV SCH (03:50)
[2022-10-29] MEDS: AZITHROMYCIN INJ 500 MG in SODIUM CHLORIDE 0.9% 250 ML IV SCH (03:50)
[2022-10-29 05:09] LABS: Hematocrit 38.1 VOL% (35.7-47.0); Hemoglobin 12.9 GM/DL (12.0-16.0); Immature Granulocytes % 0.6 %; Immature Granulocytes Absolute 0.05 #; Lymphocytes # 0.6 10*3/uL (1.4-4.0); Lymphocytes % 7.1 % (21.3-54.2); Mean Corpuscular HGB Conc 33.9 GM/DL (32-36); Mean Corpuscular Volume 82.3 FL (87-102); Mean Platelet Volume 12.1 FL (9.6-12.0); Monocytes # 0.3 10*3/uL (0.11-0.8); Monocytes % 3.3 % (1.7-12.7); Platelet Count 146 T/CUMM (130-400); Red Blood Count 4.63 MC/CUMM (3.8-5.5); Red Cell Distribution Width 13.2 % (9.3-17.3); White Blood Count 8.86 T/CUMM (4-12)
[2022-10-29 05:30] LABS: Calcium 8.1 MG/DL (8.5-10.1); Osmolality,Calculated 292.3 MOS/KG (273-304); Potassium 3.5 MMOL/L (3.5-5.1)
[2022-10-29] MEDS: INSULIN LISPRO 100 UNIT/ML SUBCUT SCH ×2 (08:55→14:19)
[2022-10-29] MEDS ORDERED: predniSONE 20 MG TABLET PO SCH (09:00)
[2022-10-29 09:11] LABS: Hemoglobin A1 (Alkaline) 98.1 % (96.5-98.5); Hemoglobin A2 (Alkaline) 1.9 % (1.5-3.5)
[2022-10-29] MEDS: REMDESIVIR 100 MG in SODIUM CHLORIDE 0.9% 100 ML IV SCH (10:04)
[2022-10-29] MEDS: FAMOTIDINE 20 MG TABLET PO SCH (10:05)
[2022-10-29] MEDS: CETIRIZINE 10 MG TABLET PO SCH (10:06)
[2022-10-29] MEDS: ASPIRIN EC 81 MG TABLET PO SCH (10:06)
[2022-10-29] MEDS: carvediloL 6.25 MG TABLET PO SCH (10:06)
[2022-10-29] MEDS: FUROSEMIDE 20 MG TABLET PO SCH (10:06)
[2022-10-29] MEDS: PANTOPRAZOLE 40 MG TABLET PO SCH (10:06)
[2022-10-29] MEDS: SPIRONOLACTONE 50 MG TABLET PO SCH (10:06)
[2022-10-29] MEDS: ASCORBIC ACID 500 MG TABLET PO SCH (10:06)
[2022-10-29] MEDS: ROSUVASTATIN 10 MG TABLET PO SCH (10:07)
[2022-10-29] MEDS: ZINC GLUCONATE 50 MG TABLET PO SCH (10:13)
[2022-10-29 13:17] VITALS: BP 116/54
== END 2022-10-29 15:00 | disposition swing bed (61) | DRG 177 ==
LOC: N.ED 22:16 → N.EDINP 10-25 01:57 → N.TELEN 10-25 17:40
PROVIDERS: ADMIT Internal Medicine; ATTEND Internal Medicine